=== PATIENT | female | born 1940 | race Caucasian/White ===

== ENCOUNTER → 2017-07-09 | Outpatient (REF) ==
[~2017-07-09] MED LIST: AMBIEN 10MG10 MG PO; ARMOUR THYROID PO; CALCIUM + D 6001 TA1 PO; CALTRATE-600 W600 MG PO; CELEXA40 MG PO; CENTRUM1 TAB PO; CEPHALEXIN500 M1 PO; CLINORIL 1150 MG/TAB PO; CLINORIL200 MG PO; COLACE 100100 MG/CAP PO; COMPAZINE 110 MG/TAB PO; COQ 10 PO; DILANTIN PO; FENTANYL TR75 MCG/HR TD; FLOMAX 0.40.4 MG/CAP PO; FLOMAX0.4 MG PO; K-TAB20 PO; LEVOTHYROXINE0.15 MG PO; LEVOXYL0.112 MG PO; LIDODERM 5% PATC1 EA TP; LIDODERM5% TP; MACROBID 1100 MG/CAP; METOCLOPRAM5 MG/5 M1 PO; MIRALAX 17GM PK1 PKT PO; MIRALAX PA17 GM/Dose PO; NEXIUM 20MG CAP20 MG PO; NORCO 325 MG-51 TAB PO; OXYCODONE HYDROC5 M1 PO; OXYCODONE10 MG PO; OXYCONTIN15 MG PO; PAROXETINE30 MG PO; PERCOCET 500 MG1 TAB PO; PHENYTEK300 MG PO; PHENYTOIN SODI100 MG PO; PHENYTOIN100 MG PO; POLYETHYLENE GL1 PO6; PRENATAL 191 CTB PO; PRESTIQ PO; PRILOSEC 20MG20 MG PO; PROTONIX 40MG T40 MG PO; RANITIDINE HCL150 M1 PO; RANITIDINE HYD150 MG PO; RANITIDINE150 MG PO; REGLAN 10MG10 MG/TAB PO; SYNTHROID 0.10.15 MG PO; THERA1 TA1 PO; THERAPEUTIC VIT1 CAP PO; THYROID PO; TRIPLE ANTIBIOT TP; ZOFRAN 4MG T4 MG/TAB PO; ZOLPIDEM10 MG PO; [UNRECOGNIZED DRUG - CODE]; [UNRECOGNIZED DRUG - OTHER] TP
[2017-07-09 22:11] LABS: BASO # 0.1 (0.0-0.2); BASO % 0.7 % (0.0-2.0); EOS # 0.3 (0.0-0.7); EOS % 3.8 % (0-4.0); GRAN # 4.8 (1.4-6.5); GRAN % 66.5 % (42.2-75.2); LYMPH # 1.3 (1.2-3.4); LYMPH % 18.4 % (20.0-51.0); MEAN CELL VOLUME 94 fl (80.0-100.0); MEAN CORPUSCULAR HGB CONC 29 g/dl (33.0-37.0); MEAN PLATELET VOLUME 9.5 fl (7.4-10.4); MONO # 0.7 (0.1-0.6); MONO % 10.2 % (1.7-9.3); PLATELET COUNT 399 K/mm3 (130-400); REDCELL DISTRIBUTION WIDTH-CV 15.5 % (11.5-14.5)
[2017-07-09 22:19] LABS: ALBUMIN 2.8 gm/dL (3.5-5.0); BILIRUBIN,TOTAL 0.3 mg/dL (0.0-1.0); CALCIUM 8.2 mg/dL (8.4-10.2); CREATININE, serum 0.75 mg/dL (0.52-1.25); HEMATOCRIT 27.3 % (37.0-47.0); HEMOGLOBIN 7.9 g/dl (12.5-16.0); MEAN CORPUSCULAR HEMOGLOBIN 27 pg (27.0-31.0); POTASSIUM 4.9 mmol/L (3.4-5.0); TOTAL PROTEIN 5.9 gm/dL (6.4-8.2)
[2017-07-09 22:49] LABS: THYROID STIMULATING HORMONE 3.73 uIU/mL (0.465-4.680)
[2017-07-10 00:51] LABS: PHENYTOIN (DILANTIN) 29.8 ug/mL (10.0-20.0)
== END ==
LOC: ZCOL.LAB 22:07
PROVIDERS: Internal Medicine
DX: C64.9 Malignant neoplasm of unspecified kidney, except renal pelvis (principal); D50.9 Iron deficiency anemia, unspecified; T42.0X1A Poisoning by hydantoin derivatives, accidental (unintentional), initial encounter; E03.8 Other specified hypothyroidism

== ENCOUNTER 2017-07-10 08:31 | Observation (INO) | payer MEDICARE ==
[~2017-07-10] VITALS: Ht 175.3 cm; Wt 85.7 kg
[~2017-07-10 08:31] MED LIST changes: -CELEXA40 MG PO; -COMPAZINE 110 MG/TAB PO; -K-TAB20 PO; -LEVOXYL0.112 MG PO; -MIRALAX PA17 GM/Dose PO; -NORCO 325 MG-51 TAB PO; -PHENYTEK300 MG PO; -PRENATAL 191 CTB PO
[2017-07-10 09:20] LABS: COLLECTION METHOD CATHETER
[2017-07-10 09:22] LABS: BASO # 0.1 (0.0-0.2); BASO % 0.9 % (0.0-2.0); EOS # 0.3 (0.0-0.7); EOS % 4.5 % (0-4.0); GRAN % 59.4 % (42.2-75.2); LYMPH # 1.6 (1.2-3.4); LYMPH % 23.5 % (20.0-51.0); MEAN CELL VOLUME 94 fl (80.0-100.0); MEAN CORPUSCULAR HGB CONC 29 g/dl (33.0-37.0); MEAN PLATELET VOLUME 9.3 fl (7.4-10.4); MONO # 0.8 (0.1-0.6); MONO % 11.4 % (1.7-9.3); PLATELET COUNT 406 K/mm3 (130-400); REDCELL DISTRIBUTION WIDTH-CV 15.6 % (11.5-14.5)
[2017-07-10 09:25] LABS: HEMATOCRIT 28.3 % (37.0-47.0); HEMOGLOBIN 8.2 g/dl (12.5-16.0); MEAN CORPUSCULAR HEMOGLOBIN 27 pg (27.0-31.0)
[2017-07-10 09:29] LABS: MUCOUS Present /lpf; PH 7 (5-8); URINE APPEARANCE Turbid; URINE BACTERIA None Seen /hpf; URINE BILIRUBIN Negative (NEGATIVE); URINE BLOOD 2+ (NEGATIVE); URINE COLOR Amber; URINE GLUCOSE Negative (NEGATIVE); URINE KETONE Negative (NEGATIVE); URINE LEUKOCYTE ESTERASE 3+ (NEGATIVE); URINE NITRATE Positive (NEGATIVE); URINE PROTEIN(semi-quant) 2+ (NEGATIVE); URINE RBC >50 /hpf; URINE UROBILINOGEN Negative (NEGATIVE)
[2017-07-10 09:31] LABS: BILIRUBIN,TOTAL 0.3 mg/dL (0.0-1.0); CALCIUM 8.3 mg/dL (8.4-10.2); CREATININE, serum 0.77 mg/dL (0.52-1.25); POTASSIUM 4.6 mmol/L (3.4-5.0); TOTAL PROTEIN 6.5 gm/dL (6.4-8.2)
[2017-07-10 10:08] LABS: MAGNESIUM 2.2 mg/dL (1.6-2.3); PHOSPHOROUS 3.5 mg/dL (2.5-4.5)
[2017-07-10] MEDS ORDERED: LEVOXYL0.112 MG PO (11:05)
[2017-07-10] MEDS ORDERED: PHENYTEK300 MG PO (11:08)
[2017-07-10] MEDS ORDERED: K-TAB20 PO (11:09)
[2017-07-10] MEDS ORDERED: CELEXA40 MG PO (11:10)
[2017-07-10] MEDS ORDERED: PRENATAL 191 CTB PO (11:11)
[2017-07-10] MEDS ORDERED: COMPAZINE 110 MG/TAB PO (11:12)
[2017-07-10] MEDS ORDERED: MIRALAX PA17 GM/Dose PO (11:12)
[2017-07-10] MEDS ORDERED: NORCO 325 MG-51 TAB PO (11:14)
[2017-07-10 13:13] VITALS: BP 140/56; PULSE 101; TEMP 98.6
[2017-07-10 16:41] VITALS: BP 96/72; PULSE 89; TEMP 98.7
[2017-07-10 18:16] LABS: ALBUMIN 2.7 gm/dL (3.5-5.0)
[2017-07-10 20:23] VITALS: BP 102/36; PULSE 81; TEMP 98
[2017-07-10 23:49] VITALS: BP 103/45; PULSE 79; TEMP 98
[2017-07-11 03:48] VITALS: BP 105/49; PULSE 84; TEMP 97.7
[2017-07-11 07:17] LABS: BASO % 0.8 % (0.0-2.0); EOS # 0.2 (0.0-0.7); EOS % 4.5 % (0-4.0); GRAN # 3.4 (1.4-6.5); GRAN % 63.5 % (42.2-75.2); MEAN CELL VOLUME 98 fl (80.0-100.0); MEAN CORPUSCULAR HGB CONC 28 g/dl (33.0-37.0); MEAN PLATELET VOLUME 9.2 fl (7.4-10.4); MONO # 0.7 (0.1-0.6); RED BLOOD COUNT 2.48 M/mm3 (4.10-5.30); REDCELL DISTRIBUTION WIDTH-CV 15.3 % (11.5-14.5)
[2017-07-11 07:23] LABS: ALBUMIN 2.4 gm/dL (3.5-5.0); BILIRUBIN,TOTAL 0.2 mg/dL (0.0-1.0); CALCIUM 7.8 mg/dL (8.4-10.2); CREATININE, serum 0.66 mg/dL (0.52-1.25); MAGNESIUM 1.9 mg/dL (1.6-2.3); POTASSIUM 4.5 mmol/L (3.4-5.0); TOTAL PROTEIN 5.3 gm/dL (6.4-8.2)
[2017-07-11 07:29] LABS: PRE ALBUMIN 7.3 mg/dL (17.6-36.0)
[2017-07-11 07:34] LABS: HEMATOCRIT 24.3 % (37.0-47.0); HEMOGLOBIN 6.9 g/dl (12.5-16.0); MEAN CORPUSCULAR HEMOGLOBIN 28 pg (27.0-31.0); PLATELET COUNT 297 K/mm3 (130-400)
[2017-07-11 07:53] LABS: TSH w REFLEX 5.77 uIU/mL (0.465-4.680)
[2017-07-11 07:59] VITALS: BP 106/49; PULSE 81; TEMP 98
[2017-07-11 12:54] VITALS: BP 105/50; PULSE 47; TEMP 98.3
[2017-07-11 16:44] VITALS: BP 99/43; PULSE 78; TEMP 98.4
[2017-07-11 20:38] VITALS: BP 98/44; PULSE 82
[2017-07-11 23:30] VITALS: BP 107/47; PULSE 84; TEMP 97.5
[2017-07-12 03:55] VITALS: BP 97/43; PULSE 84; TEMP 97.5
[2017-07-12 07:23] LABS: BASO % 0.8 % (0.0-2.0); EOS # 0.3 (0.0-0.7); EOS % 5.1 % (0-4.0); GRAN # 3.3 (1.4-6.5); GRAN % 63.1 % (42.2-75.2); LYMPH % 18.8 % (20.0-51.0); MEAN CELL VOLUME 96 fl (80.0-100.0); MEAN CORPUSCULAR HGB CONC 29 g/dl (33.0-37.0); MEAN PLATELET VOLUME 9.2 fl (7.4-10.4); MONO # 0.6 (0.1-0.6); MONO % 11.8 % (1.7-9.3); PLATELET COUNT 291 K/mm3 (130-400); RED BLOOD COUNT 2.51 M/mm3 (4.10-5.30); REDCELL DISTRIBUTION WIDTH-CV 15.2 % (11.5-14.5)
[2017-07-12 07:24] LABS: HEMATOCRIT 24.1 % (37.0-47.0); MEAN CORPUSCULAR HEMOGLOBIN 28 pg (27.0-31.0)
[2017-07-12 07:34] LABS: ALBUMIN 2.4 gm/dL (3.5-5.0); CREATININE, serum 0.63 mg/dL (0.52-1.25)
[2017-07-12 07:46] VITALS: BP 106/46; PULSE 83; TEMP 97.5
[2017-07-12 11:43] VITALS: BP 99/43; PULSE 79; TEMP 98.4
[2017-07-12] MEDS ORDERED: NORCO 325 MG-51 TAB PO (13:33)
[2017-07-12] MEDS ORDERED: ZOFRAN ODT4 MG PO (13:33)
[2017-07-12] MEDS ORDERED: ATIVAN 0.50.5 MG/TAB PO (13:46)
== END 2017-07-12 15:47 | disposition home or self-care (01) ==
LOC: COL.ER 08:31 → MEDICAL 09:10
PROVIDERS: Emergency Medicine; Internal Medicine; Physician Assistant
DX: R41.0 Disorientation, unspecified (principal); N39.0 Urinary tract infection, site not specified; C64.9 Malignant neoplasm of unspecified kidney, except renal pelvis; C78.7 Secondary malignant neoplasm of liver and intrahepatic bile duct; C78.00 Secondary malignant neoplasm of unspecified lung; C78.5 Secondary malignant neoplasm of large intestine and rectum; C79.31 Secondary malignant neoplasm of brain; R41.82 Altered mental status, unspecified; R53.81 Other malaise; R41.89 Other symptoms and signs involving cognitive functions and awareness; G89.29 Other chronic pain; E03.9 Hypothyroidism, unspecified; E46 Unspecified protein-calorie malnutrition; Z90.710 Acquired absence of both cervix and uterus; Z90.49 Acquired absence of other specified parts of digestive tract; Z90.5 Acquired absence of kidney; Z88.2 Allergy status to sulfonamides; Z88.5 Allergy status to narcotic agent; Z88.6 Allergy status to analgesic agent; Z87.891 Personal history of nicotine dependence
CPT/HCPCS: G0378; G8978-GP; G8979-GP; G8987-GO; G8988-GO; J0696; J2405; J7030